=== PATIENT | female | born 1980 | race African-American/Black ===

== ENCOUNTER 2020-01-29 14:18 | Emergency (ER) | payer MEDICAID ==
[~2020-01-29] VITALS: Ht 172.7 cm; Wt 147.0 kg
[2020-01-29 15:40] LABS: BASOPHILS % 0.6 % (0.0-2.0); EOSINOPHILS % 1.7 % (0.0-5.0); HEMATOCRIT. 39.5 % (36.0-48.0); HEMOGLOBIN. 13.5 g/dL (12.0-16.0); LYMPHOCYTES % 33.3 % (20.0-50.0); MEAN CORPUSCULAR HEMOGLOBIN 31.6 pg (28.0-32.0); MEAN CORPUSCULAR VOLUME 92.8 fL (81.0-99.0); MEAN PLATELET VOLUME 7.6 fl (7.4-10.4); MONOCYTES % 8.7 % (2.0-8.0); NEUTROPHILS % 55.7 % (40.0-76.0); PLATELET 356 x1000/uL (130-400); RED BLOOD CELL COUNT 4.26 mill/uL (4.2-5.4); RED CELL DISTRIBUTION WIDTH 14.2 % (11.6-14.6)
[2020-01-29 15:45] LABS: CHLORIDE 107 mEq/L (98-107)
[2020-01-29 15:49] LABS: ETHANOL BLOOD < 10 mg/dL
[2020-01-29 15:56] LABS: HCG SCREEN NEGATIVE
[2020-01-29 16:08] LABS: METHADONE URINE SCREEN NEGATIVE (NEGATIVE)
[2020-01-29 16:09] LABS: *AMPHETAMINES SCREEN URINE NEGATIVE (NEGATIVE); *BARBITURATES SCREEN URINE NEGATIVE (NEGATIVE); *BENZODIAZEPINES SCREEN URINE NEGATIVE (NEGATIVE); *COCAINE SCREEN URINE NEGATIVE (NEGATIVE); CANNABINOID URINE SCREEN NEGATIVE (NEGATIVE); OPIATES URINE SCREEN NEGATIVE (NEGATIVE); PHENCYCLIDINE URINE SCREEN NEGATIVE (NEGATIVE)
[2020-01-29 16:50] VITALS: BP 118/70
== END 2020-01-29 17:04 | disposition home or self-care (01) ==
LOC: ER 14:18
DX: R00.2 Palpitations (principal); R07.89 Other chest pain; J45.909 Unspecified asthma, uncomplicated; R45.89 Other symptoms and signs involving emotional state
CPT/HCPCS: 36415; 71045; 80053; 80305; 80320; 83880; 84443; 84484; 84703; 85025; 93005; 99285; G0480